=== PATIENT | female | born 1965 | race Caucasian/White ===

== ENCOUNTER 2016-04-12 18:30 | Emergency (ER) | payer SELFPAY ==
[2016-04-12 18:32] VITALS: BMI 19.6
[2016-04-12] MEDS ORDERED: METHYLPREDNISOLONE 125 MG/2 ML VIAL IV ONE (18:48)
[2016-04-12] MEDS ORDERED: Albuterol/Ipratropium Neb 3 ML NEB NEB ONE (18:48)
--- NOTE | 2016-04-12 18:52 | EDPRACDOC ---
- General Information Chief Complaint: Dyspnea/Resp distress Stated Complaint: SHORT OF BREATH COUGH CONGESTION Information Source: Patient Mode Of Arrival: Car Home Medications: Home Medications Albuterol Sulfate [Proair Hfa] 2 puff INH Q4-6H PRN 02/14/16 Azithromycin 250 mg PO DAILY #6 tablet 04/12/16 Prednisone [Deltasone, Orasone] 40 mg PO DAILY 5 Days 04/12/16 Allergies/Adverse Reactions: Allergies Allergy/AdvReac Type Severity Reaction Status Date / Time hydromorphone HCl Allergy Severe Hives* Verified 02/14/16 11:45 [From Dilaudid] morphine Allergy Severe Hives* Verified 02/14/16 11:45 Penicillins Allergy Severe Hives* Verified 02/14/16 11:45 Shellfish *RETIRED-08/10/12 Allergy Severe Anaphylaxis Verified 02/14/16 11:45 [Shellfish] * - History of Present Illness HPI: Pt with hx of COPD c/o progressive SOB, sore throat, cough, chills, body aches, dec appetite, left ear pain x 4 days. Ran out of inhaler and nebs on monday, but they provided relief when used. Denies cp, N/V/D, change in urine or BM. Med hx = COPD, HDL. Has not taken tylenol or ibuprofen since this am. Shortness of Breath: Mild Relevant History: Reports: COPD Cough: Reports: Non-productive Ear Symptoms: Reports: Earache (left) SOB Worsens with: Reports: Exertion, Movement, Coughing SOB Improves with: Reports: Sitting up, Inhaler Associated Signs and symptoms: Reports: Cough, Earache, Sore Throat, Myalgia ED Past Medical History - History Reviewed Yes Nurses notes reviewed and agree except as marked - Patient Medical History Neurological History: Denies: Cerebrovascular Accident, Seizures, Epilepsy Cardiac History: Reports: Hypercholesterolemia, Syncope Respiratory History: Reports: Asthma (as a child), COPD. Denies: Pneumonia GI/ History: Reports: Ulcer Psychological History: Reports: Anxiety. Denies: Depression Systemic History: Denies: Cancer Surgical History: Reports: Appendectomy, Cholecystectomy, Hysterectomy, Tonsillectomy/Adnoidectomy - Family Medical History Reports: Hypertension, Cancer (father-prostate). Denies: Diabetes - Social Medical History Smoking Status: Heavy tobacco smoker (5 or more cigarettes/day or daily pipe/ cigar) EDM Review of Systems - Review of Systems ROS Negative Except as Marked: Yes All systems reviewed and were negative except as marked Ears: Pain (left) Throat: Pain Nose: No Symptoms Reported Respiratory: Cough, Shortness of Breath Neurological: Weakness (general) - Physical Exam Constitutional: No apparent distress, Alert Oriented to: Time, Person, Place Last recorded Vital Signs: Last Vital Signs Temp 98.0 F 04/12/16 18:34 Pulse 106 04/12/16 18:34 Resp 20 04/12/16 18:34 BP 108/58 L 04/12/16 18:34 Pulse Ox 98 04/12/16 18:34 Oxygen Pulse Oxygen Saturation 98 O2 Device Room Air Oxygen Flow Rate Fraction of Inspired Oxygen ( 97 FIO2) - HEENT Head: Normal Eye Exam: negative: Conjunctival Injection, Scleral Icterus Oropharynx: Red Tympanic Membrane: Redness (left) ENT EAC: Normal TMJ: Normal Nose: No Symptoms Reported Neck: Normal - Respiratory/Cardiovascular Respiratory: Wheezes (mild, lower lobes bilat) Cardiovascular: Normal - GI Tenderness: Non tender - Musculoskeletal Back: Normal Extremities: Normal - Integumentary Skin: Normal - Neurologic Mood Description: Normal Thought: Coherent Perception: Normal ED SOB MDM - Diagnostic Imaging Chest Image interpreted by: Radiologist Diagnostic Imaging Comments: EXAM: CHEST 2 VIEW COMPARISON: Radiograph dated 11/15/2015 FINDINGS: Two views of the chest demonstrate emphysematous changes of the lungs. There is no focal consolidation, pleural effusion, or pneumothorax. A with pudding device is noted over the left chest. The cardiac silhouette is within normal limits. The osseous structures appear unremarkable IMPRESSION: Emphysema. No focal consolidation or pneumothorax. No interval change. Electronically Signed By: Gino Santillan M.D. On: 04/12/2016 19:32 Decision Time to Discharge: 19:41 - Departure Disposition: Home Condition: Stable Final Diagnosis: COPD exacerbation Otitis media Qualifiers: Otitis media type: unspecified Laterality: left Chronicity: unspecified Qualified Code(s): H66.92 - Otitis media, unspecified, left ear Instructions: Otitis Media (ED), COPD (Chronic Obstructive Pulmonary Disease) ( ED) Education/Counseling Given To: Patient Education/Counseling Given Regarding: Diagnosis, Treatment, Prognosis, Follow Up Referrals: Daisy Hernandez NP [Primary Care Provider] - One Week Prescriptions: New Azithromycin 250 mg PO DAILY #6 tablet Prednisone [Deltasone, Orasone] 40 mg PO DAILY 5 Days No Action Albuterol Sulfate [Proair Hfa] 2 puff INH Q4-6H PRN PRN Reason: Shortness Of Breath Additional Instructions: Follow up with primary care. Return to ED for any new or worsening symptoms.
--- NOTE | 2016-04-12 19:35 | DIRPT ---
CLINICAL DATA: 50-year-old female with shortness of breath EXAM: CHEST 2 VIEW COMPARISON: Radiograph dated 11/15/2015 FINDINGS: Two views of the chest demonstrate emphysematous changes of the lungs. There is no focal consolidation, pleural effusion, or pneumothorax. A with pudding device is noted over the left chest. The cardiac silhouette is within normal limits. The osseous structures appear unremarkable IMPRESSION: Emphysema. No focal consolidation or pneumothorax. No interval change. Electronically Signed By: Gino Santillan M.D. On: 04/12/2016 19:32
[2016-04-12 19:36] VITALS: PULSE 108; TEMP 99.5
[2016-04-12] MEDS ORDERED: ALBUTEROL 6.7 GM MDI INH ONE (19:46)
[2016-04-12 19:56] VITALS: BP 110/64
== END 2016-04-12 19:58 | disposition home or self-care (01) ==
LOC: ED 18:30
DX: J44.1 Chronic obstructive pulmonary disease with (acute) exacerbation (principal); H66.92 Otitis media, unspecified, left ear; E78.00 Pure hypercholesterolemia, unspecified; F41.9 Anxiety disorder, unspecified; F17.200 Nicotine dependence, unspecified, uncomplicated
CPT/HCPCS: 71020; 93005; 94640; 96374; 99283; J2930; J3490; J7620